=== PATIENT | female | born 1955 | race Caucasian/White ===

== ENCOUNTER → 2022-03-25 | Outpatient (CLI) | payer BC ==
[~2022-03-25] MED LIST: AREDS 2 PO; BETA0.12 TOP; CLOB1SPR TOP; HYDR-3490 PO; METO1TAB33 PO; TACR0.1O TOP
== END ==
LOC: M LABSMTC 09:46
PROVIDERS: ATTEND Ophthalmology
DX: Z01.812 Encounter for preprocedural laboratory examination (principal)

== ENCOUNTER 2022-03-29 07:46 | Day surgery (SDC) | payer MEDICARE, BC, OTHER ==
[~2022-03-29] VITALS: Ht 167.6 cm; Wt 80.2 kg
[~2022-03-29 07:46] MED LIST changes: +BSS IRR 500ML/OMIDRIA 4ML IRR BAG (OR ONLY) As Ordered ONE; +CEFUROXIME 1MG/0.1ML INTRACAMERAL INJ As Ordered ONE; +LIDOCAINE 1% SDV 5ML VIAL As Ordered ONE; +MIDAZOLAM INJ 2MG/2ML VIAL (J2250 PER 1MG) As Ordered ONE; +PROPARACAINE 0.5% OPHTH SOL 15ML OD ONE; +fentaNYL 100 MCG/2 ML INJECTION As Ordered ONE
[2022-03-29] MEDS ORDERED: INSULIN LISPRO (NovoLOG) PER UNIT SC PRN (08:05)
[2022-03-29] MEDS: OFLOXACIN 0.3 % (OCUFLOX) OPTH SOL 5ML OD SCH ×3 (08:21→08:32)
[2022-03-29] MEDS: PHENYLEPHRINE 2.5% OPHTH SOL 2ML OD SCH ×3 (08:22→08:33)
[2022-03-29] MEDS: TROPICAMIDE 1% OPHTH SOLN 2ML OD SCH ×3 (08:22→08:33)
[2022-03-29 10:15] VITALS: BP 128/69
== END 2022-03-29 10:30 | disposition home or self-care (01) ==
LOC: M SDC 07:46
PROVIDERS: ATTEND Ophthalmology
DX: H25.11 Age-related nuclear cataract, right eye (principal); F17.210 Nicotine dependence, cigarettes, uncomplicated; L40.9 Psoriasis, unspecified; Z79.899 Other long term (current) drug therapy
CPT/HCPCS: 66984; J0697; J1097; J2250; J3010; V2632

== ENCOUNTER → 2022-05-27 | Outpatient (CLI) | payer MEDICARE, BC, OTHER ==
[~2022-05-27] MED LIST changes: -BSS IRR 500ML/OMIDRIA 4ML IRR BAG (OR ONLY) As Ordered ONE; -CEFUROXIME 1MG/0.1ML INTRACAMERAL INJ As Ordered ONE; -LIDOCAINE 1% SDV 5ML VIAL As Ordered ONE; -MIDAZOLAM INJ 2MG/2ML VIAL (J2250 PER 1MG) As Ordered ONE; -PROPARACAINE 0.5% OPHTH SOL 15ML OD ONE; -fentaNYL 100 MCG/2 ML INJECTION As Ordered ONE
== END ==
LOC: M LABSMTC 09:23
PROVIDERS: ATTEND Anesthesiology
DX: Z11.52 Encounter for screening for COVID-19 (principal); Z20.822 Contact with and (suspected) exposure to COVID-19

== ENCOUNTER 2022-05-31 07:14 | Day surgery (SDC) | payer MEDICARE, BC, OTHER ==
[~2022-05-31] VITALS: Ht 170.2 cm; Wt 80.0 kg
[~2022-05-31 07:14] MED LIST changes: +BSS IRR 500ML/OMIDRIA 4ML IRR BAG (OR ONLY) As Ordered ONE; +CEFUROXIME 1MG/0.1ML INTRACAMERAL INJ As Ordered ONE; +LIDOCAINE 1% SDV 5ML VIAL As Ordered ONE; +PROPARACAINE 0.5% OPHTH SOL 15ML OS ONE
[2022-05-31] MEDS: TROPICAMIDE 1% OPHTH SOLN 2ML OS SCH ×3 (07:59→08:15)
[2022-05-31] MEDS: PHENYLEPHRINE 2.5% OPHTH SOL 2ML OS SCH ×3 (07:59→08:15)
[2022-05-31] MEDS: OFLOXACIN 0.3 % (OCUFLOX) OPTH SOL 5ML OS SCH ×3 (07:59→08:15)
[2022-05-31] MEDS ORDERED: MIDAZOLAM INJ 2MG/2ML VIAL (J2250 PER 1MG) As Ordered ONE (09:11)
[2022-05-31] MEDS ORDERED: fentaNYL 100 MCG/2 ML INJECTION As Ordered ONE (09:11)
[2022-05-31 10:25] VITALS: BP 152/71
[2022-05-31] MEDS ORDERED: ONDANSETRON 4MG 2ML VIAL IV PRN (10:40)
== END 2022-05-31 10:25 | disposition home or self-care (01) ==
LOC: M SDC 07:14
PROVIDERS: ATTEND Ophthalmology
DX: H25.12 Age-related nuclear cataract, left eye (principal); I10 Essential (primary) hypertension; I25.2 Old myocardial infarction; Z79.899 Other long term (current) drug therapy
CPT/HCPCS: 66984; J0697; J1097; J2250; J3010; V2632